=== PATIENT | female | born 1980 ===

== ENCOUNTER 2018-05-15 11:19 | Emergency (ER) | payer SELFPAY ==
[2018-05-15 11:34] VITALS: BP 117/72; PULSE 73; RESP 20; TEMP 98; O2SAT 100
[2018-05-15 11:56] LABS: HCG,QUALITATIVE URINE POSITIVE (NEGATIVE)
[2018-05-15 12:06] LABS: SQUAMOUS EPITHIAL 10 /hpf (0-5); URINE BACTERIA RARE (<OCC); URINE BILIRUBIN NEGATIVE (NEGATIVE); URINE BLOOD 3+ (NEGATIVE); URINE CLARITY Hazy (Clear); URINE COLOR Yellow (YELLOW); URINE GLUCOSE (UA) NORMAL (Normal); URINE LEUKOCYTE ESTERASE 1+ Leu/uL (Negative); URINE PROTEIN NEGATIVE (NEGATIVE); URINE UROBILINOGEN NORMAL mg/dL (0.2-1.0)
--- NOTE | 2018-05-15 12:26 | C.PDOC ---
Addendum entered and electronically signed by Carmina Segura PA-C 05/20/18 13:24: Addendum Addendum: Noted that patient's blood type is O positive, determined on prior visit. No indication for RhoGam at this time. Original Note: History Of Present Illness 37 y/o A1 7 week female presents to ED c/o vaginal bleeding since this morning. She passed 2 small clots this morning and is now lightly spotting. Admits to associated dysuria and urinary frequency. She has not yet seen an OB but is scheduled for an appointment May 20. She had an US that confirmed IUP at [facility] a few weeks ago. Denies abdominal pain, lightheadedness, headache, vaginal discharge, palpitations, chest pain, SOB. Chief Complaint (Nursing): Abdominal Pain Past Medical History Reviewed: Historical Data, Nursing Documentation, Vital Signs Vital Signs: Last Vital Signs Temp 98 F 05/15/18 11:31 Pulse 73 05/15/18 11:31 Resp 20 05/15/18 11:31 BP 117/72 05/15/18 11:31 Pulse Ox 100 05/15/18 11:31 Family History: States: Unknown Family Hx - Social History Hx Tobacco Use: Yes Hx Alcohol Use: No Hx Substance Use: No - Immunization History Hx Tetanus Toxoid Vaccination: No Hx Influenza Vaccination: No Hx Pneumococcal Vaccination: No Review Of Systems Constitutional: Negative for: Fever, Chills Cardiovascular: Negative for: Chest Pain, Palpitations Respiratory: Negative for: Cough, Shortness of Breath Gastrointestinal: Negative for: Nausea, Vomiting, Abdominal Pain, Diarrhea Genitourinary: Positive for: Dysuria, Frequency, Vaginal Bleeding. Negative for: Incontinence, Hematuria, Vaginal Discharge, Pelvic Pain, Rash Musculoskeletal: Negative for: Neck Pain, Back Pain Skin: Negative for: Rash Neurological: Negative for: Weakness, Numbness, Headache, Dizziness Physical Exam - Physical Exam Appears: Well, No Acute Distress Skin: Normal Color, Warm, Dry Head: Atraumatic, Normacephalic, No Tenderness Eye(s): bilateral: Normal Inspection, PERRL, EOMI Oral Mucosa: Moist Neck: Normal, Normal ROM Lymphatic: Normal Exam Chest: Symmetrical Cardiovascular: Rhythm Regular Respiratory: Normal Breath Sounds Gastrointestinal/Abdominal: Normal Exam, Bowel Sounds, Soft, No Tenderness, No Mass, No Distention, No Guarding, No Rebound Back: Normal Inspection, No Vertebral Tenderness, No Muscle Spasm, No Paraspinal Tenderness Pelvic: Normal External Exam, Normal Speculum Exam, Normal Bimanual Exam, No Vaginal Bleeding, No Vaginal Discharge, No Cervical Motion Tenderness, No Cervix Open, No Adnexal Tenderness, No Mass, No Enlarged Uterus, No Tender Uterus Extremity: Normal ROM Neurological/Psych: Oriented x3, Normal Speech, Normal Cognition, Normal Cranial Nerves, No Cerebellar Signs, Normal Motor, Normal Sensation ED Course And Treatment - Laboratory Results Result Diagrams: 05/15/18 12:59 05/15/18 12:59 O2 Sat by Pulse Oximetry: 100 Medical Decision Making Medical Decision Making: initial plan: --poc preg --UA --urine culture --CBC, CMP, hcg quant --TV US, OB --pelvic exam poc preg - positive UA - UTI (blood, leuk esterase) CBC: wnl CMP: wnl hcg quant - appropriate for gestation TV US: Confirmed IUP, HR 146, 7 weeks 1 day CRL small subchorionic hemmorhage - f/u with OB Impression: vaginal bleeding in Plan: keflex for UTI followup with OB as scheduled Return if symptoms worsen Disposition - Disposition [facility] Disposition: HOME/ ROUTINE Disposition Time: 15:20 Condition: IMPROVED Additional Instructions: Take keflex every 12 hours for 7 days Followup with OBGYN on 05/20/18 Return to ED if symptoms worsen Prescriptions: Cephalexin [cephalexin] 500 mg PO Q12H 7 Days #14 cap Forms: Work/School/Gym Excuse, [facility] (Bel[place]ian) Print Language: TRISTANIAN - Clinical Impression Clinical Impression: Vaginal bleeding during
[2018-05-15 13:02] LABS: BASO # 0.1 K/uL (0.0-0.2); BASO % 0.8 % (0.0-2.0); EOS # 0.2 K/uL (0.0-0.7); EOS % 2.6 % (0.0-4.0); HEMOGLOBIN 12.4 g/dL (11.0-16.0); LYMPH # 1.9 K/uL (1.0-4.3); LYMPH % 25.5 % (20.0-40.0); MEAN PLATELET VOLUME 8.5 fL (7.2-11.7); MONO # 0.6 K/uL (0.0-0.8); MONO % 8.4 % (0.0-10.0); NEUT # 4.7 K/uL (1.8-7.0); NEUT % 62.7 % (50.0-75.0); NRBC % 0.1 % (0.0-2.0); RBC 4.28 Mil/uL (3.80-5.20); RED CELL DISTRIBUTION WIDTH 14.1 % (11.5-14.5); WHITE BLOOD COUNT 7.5 K/uL (4.8-10.8)
[2018-05-15 13:10] LABS: MEAN CELL VOLUME 85.3 fL (81.0-99.0)
[2018-05-15 13:15] LABS: BLOOD UREA NITROGEN 8 mg/dL (7-17); GFR NON-AFRICAN AMERICAN > 60
[2018-05-15 13:16] LABS: ALB/GLOB RATIO 1.2 (1.0-2.1); ALBUMIN 3.7 g/dL (3.5-5.0); ALT/SGPT 15 U/L (9-52); AST/SGOT 10 U/L (14-36); CALCIUM 8.8 mg/dl (8.6-10.4)
--- NOTE | 2018-05-15 14:51 | US ---
Date of service: 05/15/18 Indication: Vaginal bleeding, Comparison: 1st trimester/Ob transvaginal ultrasound performed 01/25/15 Technique: Transabdominal pelvic ultrasound Findings: The uterus measures approximately 12.6 x 7.2 x 8.7 cm. Anteverted. Cervix length measures approximately 4 cm. There is a single intrauterine fetus present. 3 mm yolk sac. The gestational sac measures 2.5 cm and is compatible with a gestational age of 7 weeks 1 day. The crown-rump length measures 1.2 cm and is compatible with a gestational age of 7 weeks 3 days. There is heart motion which measured 146 BPM. 1.4 x 1.0 x 1.2 cm small subarachnoid hemorrhage. The right ovary measures 3.4 x 2.4 x 3.3 cm. The left ovary measures 3.6 x 2.8 x 3.3 cm. Blood flow was demonstrated to both ovaries. Impression: Live single intrauterine with estimated gestational age 7 weeks 1 day by gestational sac calculation and 7 weeks 3 days by crown-rump length calculation. heart rate 146 bpm. Advise an anomaly screen at 16-18 weeks gestational age 1.4 x 1.0 x 1.2 cm small subarachnoid hemorrhage.
== END 2018-05-15 15:40 | disposition home or self-care (01) ==
LOC: C.ER 11:19
DX: O20.9 Hemorrhage in early pregnancy, unspecified (principal); O23.41 Unspecified infection of urinary tract in pregnancy, first trimester; Z3A.01 Less than 8 weeks gestation of pregnancy